=== PATIENT | male | born 1985 | race Asian ===

== ENCOUNTER 2019-06-17 18:49 | Emergency (ER) | payer OTHER ==
--- NOTE | 2019-06-17 19:25 | PDOC ---
History of Present Illness - General Chief Complaint: Pain Stated Complaint: ABD PAIN - History of Present Illness Initial Comments: The pt is a 33M w/ a history of HIV who presents for evaluation of abdominal pain for 1 week. The pain is suprapubic, achy, persistent, worse with touch, associated with constipation, difficulty with urination, chills, and not alleviated by anything he can identify. He reports using a dildo 1 week ago and has had the pain since that time. He states he thinks everything was removed. He reports diarrhea two days ago, no blood in his stool. Endorses mild discomfort with urination, denies blood in his stool. Denies fevers, vomiting, increased burping, chest pain, trouble breathing, or changes in sensation. 06/17/19 20:14 Past History - Past Medical History Allergies/Adverse Reactions: Allergies Allergy/AdvReac Type Severity Reaction Status Date / Time No Known Allergies Allergy Verified 06/17/19 19:27 Home Medications: Ambulatory Orders Elviteg/Cob/Emtri/Tenof Alafen [Genvoya Tablet] 1 each PO DAILY #30 tablet 06/09 Diabetes: No - Psycho Social/Smoking Cessation Hx Smoking History: Never smoked Have you smoked in the past 12 months: No Cigars Per Day: 0 Hx Alcohol Use: Yes (1-2 beers per week) Drug/Substance Use Hx: No (poppers; denies) Substance Use Type: None Hx Substance Use Treatment: No Review of Systems - Review of Systems Able to Perform ROS?: Yes Comments:: GENERAL/CONSTITUTIONAL: No fever. No weakness HEAD, EYES, EARS, NOSE AND THROAT: No change in vision. No change in hearing. No sore throat CARDIOVASCULAR: No chest pain or shortness of breath RESPIRATORY: Denies cough, hemoptysis MUSCULOSKELETAL: No joint or muscle swelling or pain. No neck or back pain SKIN: No rash NEUROLOGIC: No headache, vertigo, loss of consciousness, or change in strength/ sensation ENDOCRINE: No increased thirst. No abnormal weight change HEMATOLOGIC/LYMPHATIC: No anemia, easy bleeding, or history of blood clots ALLERGIC/IMMUNOLOGIC: No hives or skin allergy 06/17/19 19:24 Is the patient limited Mexican proficient: No *Physical Exam - Physical Exam Comments: GENERAL: Awake, alert, and oriented to person/place/time, in no acute distress HEAD: No signs of trauma, normocephalic, atraumatic EYES: PERRLA, EOMI, sclera anicteric, conjunctiva clear ENT: Hearing grossly normal, nares patent, oropharynx clear without exudates. Moist mucosa NECK: Normal ROM, supple, no lymphadenopathy, JVD, or masses LUNGS: No distress, speaks in full sentences, clear to auscultation bilaterally HEART: Regular rate and rhythm, normal S1 and S2, no murmurs appreciated, peripheral pulses normal and equal bilaterally ABDOMEN: Soft, suprapubic TTP w/o rebound or guarding, normoactive bowel sounds RECTAL: no external hemorrhoids, no fissures, no evidence of overt trauma EXTREMITIES: Normal inspection, Normal range of motion, no edema. No clubbing or cyanosis NEUROLOGICAL: Cranial nerves II through XII grossly intact. Normal speech, normal gait, no focal sensorimotor deficits SKIN: Warm, 06/17/19 19:24 ED Treatment Course - LABORATORY CBC & Chemistry Diagram: 06/17/19 19:25 06/17/19 19:25 Medical Decision Making - Medical Decision Making The pt is a 33M w/ a history of HIV who presents for evaluation of 1 week of lower abdominal pain after use of dildo ED Course Labs sent CT A&P POCUS w/ 32cc PVR Ofirmev for pain 06/17/19 20:18 CT A&P w/o acute pathology Plan for D/C w/ PCP f/u Discharge instructions and return precautions given Pt in agreement and verbalized understanding Dispo: home 06/17/19 22:48 Discharge - Discharge Information Problems reviewed: Yes Clinical Impression/Diagnosis: Abdominal pain Qualifiers: Abdominal location: lower abdomen, unspecified Qualified Code(s): R10.30 - Lower abdominal pain, unspecified Constipation Qualifiers: Constipation type: unspecified constipation type Qualified Code(s): K59.00 - Constipation, unspecified Condition: Stable Disposition: HOME - Admission No - Follow up/Referral Referrals: Yvon Benitez MD [Staff Physician] - Myles Bravo MD [Staff Physician] - [facility] [place] [facility] [place] [Provider Group] - Patient Discharge Instructions Patient Printed Discharge Instructions: DI for Abdominal Pain-Adult Additional Instructions: You were seen in the Emergency Department for evaluation of abdominal pain. Your labs and imaging were unremarkable. Follow up with Urology and gastroenterology. Review the handout provided at discharge. Return to the Emergency Department if you develop fevers/chills, do not pass gas, abdominal bloating, inability to urinate, vomiting, worsening symptoms, or any new/ concerning symptoms. - Post Discharge Activity
[2019-06-17 19:27] VITALS: BP 118/82; PULSE 72; TEMP 98.2; BMI 25.1
[2019-06-17] MEDS ORDERED: ACETAMINOPHEN 1000 MG/100 ML VIAL (NON FORMULARY) IVPB ONE (19:41)
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
[2019-06-17] MEDS ORDERED: ACETAMINOPHEN INJECTION 100 ML IVPB ONE ×2 (20:13→20:46)
[2019-06-17 20:20] LABS: BASO % 0.2 % (0-2.0); EOS % 2.2 % (0-4.5); HEMATOCRIT 43.8 % (35.4-49); LYMPH % 34.1 % (8-40); MCH 33.6 pg (25.7-33.7); MCHC 34.3 g/dl (32.0-35.9); MEAN CELL VOLUME 97.9 fl (80-96); MONO % 8.2 % (3.8-10.2); NEUT % 55.3 % (42.8-82.8); PLATELET COUNT 196 K/MM3 (134-434); RBC 4.47 M/mm3 (4.00-5.60); WHITE BLOOD COUNT 4.5 K/mm3 (4.0-10.0)
[2019-06-17 20:21] LABS: PH,URINE 7.5 (5.0-8.0); URINE APPEARANCE CLEAR; URINE BILIRUBIN NEGATIVE (NEGATIVE); URINE COLOR YELLOW; URINE GLUCOSE (UA) NEGATIVE (NEGATIVE); URINE KETONE NEGATIVE (NEGATIVE); URINE LEUK ESTERASE NEGATIVE (NEGATIVE); URINE NITRITE NEGATIVE (NEGATIVE); URINE PROTEIN NEGATIVE (NEGATIVE); URINE UROBILINOGEN 0.2 mg/dL (0.2-1.0)
[2019-06-17 21:04] LABS: ALBUMIN 4.1 g/dl (3.4-5.0); BILIRUBIN,TOTAL 0.4 mg/dL (0.2-1); BLOOD UREA NITROGEN 5.2 mg/dL (7-18); CALCIUM 9.6 mg/dL (8.5-10.1); CREATININE 0.9 mg/dL (0.55-1.3); POTASSIUM 3.8 mmol/L (3.5-5.1); TOT PROT 7.3 g/dl (6.4-8.2)
== END 2019-06-17 23:08 | disposition home or self-care (01) ==
LOC: JER 18:49
PROC: 3E033NZ Introduction of Analgesics, Hypnotics, Sedatives into Peripheral Vein, Percutaneous Approach (ICD-10-PCS; principal; 2019-06-17)
DX: R10.30 Lower abdominal pain, unspecified (principal); K59.00 Constipation, unspecified; R11.0 Nausea; Z21 Asymptomatic human immunodeficiency virus [HIV] infection status
CPT/HCPCS: 36415; 74177-TC; 80053; 81003; 85025; 87086; 99283-25; J0131

== ENCOUNTER 2019-06-27 20:33 | Emergency (ER) | payer OTHER ==
[2019-06-27 20:38] VITALS: BP 118/75; PULSE 91; TEMP 98.2; BMI 25.1
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
== END 2019-06-27 23:59 | disposition home or self-care (01) ==
LOC: JER 20:33
DX: K62.89 Other specified diseases of anus and rectum (principal); Z21 Asymptomatic human immunodeficiency virus [HIV] infection status
CPT/HCPCS: 99282-25

== ENCOUNTER 2019-06-28 15:15 | Emergency (ER) | payer OTHER ==
[2019-06-28 15:27] VITALS: BP 133/81; PULSE 89; TEMP 97.2; BMI 23.6
--- NOTE | 2019-06-28 17:46 | PDOC ---
Attending Attestation - Resident Resident Name: Chuck Morales - ED Attending Attestation I have performed the following: I have examined & evaluated the patient, The case was reviewed & discussed with the resident, I agree w/resident's findings & plan, Exceptions are as noted - HPI HPI: 06/28/19 18:04 33y M hx of HIV (on HAART, lowest CD4 was in the 3-400s) presents with intermittent abd discomfort. Pt states earlier this morning he had a bubble like sensation on the abdomen and wa concerned he might be having sepsis. Pt was here recently for evaluation of rectal fb sensation that he said he no longer has that sensation. denies any fever/chills, n/v, rectal bleeding, diarrhea, melena, bpr. pt notes he is not currently having pain (had mild discomfort earlier in the day). Denies any pain in the testicles nr in the rectum. Physical Exam: GENERAL: The patient is awake, alert, and fully oriented, Nontoxic - in no acute distress. ABDOMEN: Soft, nontender, No guarding, no rebound. No CVA tenderness EXTREMITIES: Normal range of motion, no edema. NEUROLOGICAL: No facial assymetry, Normal speech, moving all 4 extremities spontaneously and symmetrically PSYCH: Normal mood, normal affect. SKIN: Warm, Dry, normal turgor The patient is well-appearing, no acute distress his abdomen is soft and nontender. He is currently asymptomatic. I suspect the patient may be anxious about his medical condition. He is tolerating oral intake. Do not feel that any blood work or imaging is necessary at this time I will discharge patient follow-up with his colorectal surgeon and PMD. Return precautions are discussed - Physicial Exam PE: 07/06/19 07:29 see abve - Medical Decision Making 07/06/19 07:29 see above
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
== END 2019-06-28 19:00 | disposition home or self-care (01) ==
LOC: JER 15:15
DX: R10.9 Unspecified abdominal pain (principal); F17.210 Nicotine dependence, cigarettes, uncomplicated; Z21 Asymptomatic human immunodeficiency virus [HIV] infection status
CPT/HCPCS: 99281-25

== ENCOUNTER 2021-08-09 20:15 | Emergency (ER) | payer OTHER ==
[2021-08-09 20:28] VITALS: BP 118/75; PULSE 94; TEMP 98.4; BMI 28.8
[2021-08-09] MEDS ORDERED: ASPIRIN 81 MG CHEWABLE TABLETS PO ONE (21:47)
[2021-08-09] MEDS ORDERED: morphine CARPU-JECT 4 MG/1 ML DISP.SYRIN IVPUSH ONE (21:47)
[2021-08-09] MEDS ORDERED: SODIUM CHLORIDE 1,000 ML IV STA (21:47)
[2021-08-09] MEDS ORDERED: morphine SULFATE 4 MG/ML VIAL ONE (22:29)
[2021-08-09] MEDS ORDERED: ASPIRIN 81 MG CHEWABLE TABLETS ONE (22:30)
[2021-08-09 22:45] LABS: BASO % 0.5 % (0-2.0); EOS % 0.7 % (0-4.5); HEMATOCRIT 44.4 % (35.4-49); HEMOGLOBIN 15.4 GM/dL (11.7-16.9); LYMPH % 22.8 % (8-40); MCH 33.3 pg (25.7-33.7); MCHC 34.8 g/dl (32.0-35.9); MEAN CELL VOLUME 95.8 fl (80-96); MEAN PLT VOLUME 6.8 fl (7.5-11.1); MONO % 7.6 % (3.8-10.2); NEUT % 68.4 % (42.8-82.8); PLATELET COUNT 184 10^3/uL (134-434); RBC 4.63 M/mm3 (4.00-5.60); RDW 14.3 % (11.9-15.9); WHITE BLOOD COUNT 3.9 K/mm3 (4.0-10.0)
[2021-08-09 22:50] LABS: INR 1.05 (0.83-1.09); PROTHROMBIN TIME (PATIENT) 12.3 SEC (9.7-13.0)
[2021-08-09 22:54] LABS: ACTIVATED PTT 27.9 SECONDS (25.2-36.5)
[2021-08-09 22:57] LABS: CHLORIDE 107 mmol/L (98-107); SODIUM 140 mmol/L (136-145)
[2021-08-09 23:00] LABS: ALBUMIN 3.7 g/dl (3.4-5.0); ANION GAP 9 MMOL/L (8-16); CO2 25 mmol/L (21-32); GLUCOSE,RANDOM 124 mg/dL (74-106); LIPASE 131 U/L (73-393); MAGNESIUM 2.3 mg/dL (1.8-2.4)
[2021-08-09 23:03] LABS: CREATININE 1.1 mg/dL (0.55-1.3); SGOT/AST 29 U/L (15-37); SGPT/ALT 50 U/L (13-61)
[2021-08-09 23:05] LABS: BILIRUBIN,TOTAL 0.9 mg/dL (0.2-1); TOT PROT 7.5 g/dl (6.4-8.2)
[2021-08-09 23:06] LABS: ALK PHOS 66 U/L (45-117)
[2021-08-09 23:19] LABS: BLOOD UREA NITROGEN 2.3 mg/dL (7-18)
[2021-08-10 01:05] LABS: PH,URINE 6.5 (5.0-8.0); URINE APPEARANCE CLEAR; URINE BILIRUBIN NEGATIVE (NEGATIVE); URINE COLOR YELLOW; URINE GLUCOSE (UA) NEGATIVE (NEGATIVE); URINE KETONE NEGATIVE (NEGATIVE); URINE LEUK ESTERASE NEGATIVE (NEGATIVE); URINE NITRITE NEGATIVE (NEGATIVE); URINE PROTEIN NEGATIVE (NEGATIVE); URINE UROBILINOGEN 0.2 mg/dL (0.2-1.0)
== END 2021-08-10 00:42 | disposition home or self-care (01) ==
LOC: JER 20:15
PROC: 3E033NZ Introduction of Analgesics, Hypnotics, Sedatives into Peripheral Vein, Percutaneous Approach (ICD-10-PCS; principal; 2021-08-09)
DX: R10.9 Unspecified abdominal pain (principal)
CPT/HCPCS: 36415; 71046-TC-FY; 76705-TC; 80053; 81003; 82550; 83690; 83735; 84484; 85025; 85610; 85730; 93005; 93010; 99285-25; C9803; U0003; U0005

== ENCOUNTER 2021-08-25 16:06 | Emergency (ER) | payer OTHER ==
[2021-08-25 17:02] VITALS: BP 104/69; PULSE 68; TEMP 97.6; BMI 26.6
== END 2021-08-25 18:14 | disposition home or self-care (01) ==
LOC: JERFT 16:06
DX: K62.89 Other specified diseases of anus and rectum (principal)
CPT/HCPCS: 74018-TC-FY; 99283-25